=== PATIENT | female | born 1935 | race Caucasian/White ===

== ENCOUNTER 2021-12-01 18:55 | Inpatient (IN) | payer MEDICARE, OTHER ==
[~2021-12-01] VITALS: Ht 170.2 cm; Wt 70.9 kg
[2021-12-01] MEDS ORDERED: AMIODARONE HCL 150 MG in D5W 5% 100 ML IV ONE (20:00)
[2021-12-01] MEDS ORDERED: LABETALOL HCL 5 MG/ML 4ML SYRINGE IV ONE (20:00)
[2021-12-01 20:07] LABS: Basophils # (auto) 0.1 10 ^3/uL (0-0.2); Basophils % (auto) 1.2 % (0.0-2.0); Eosinophils # (auto) 0.1 10 ^3/uL (0-0.8); Eosinophils % (auto) 1.5 % (0.0-7.0); Hematocrit 36.8 % (36.0-46.0); Hemoglobin 11.8 g/dL (12.2-16.2); Lymphocytes # (auto) 1.6 10 ^3/uL (0.4-5.4); Lymphocytes % (auto) 19.6 % (10.0-50.0); Mean Corpuscular Hemoglobin 28.5 pg (28.0-32.0); Mean Corpuscular Hgb Conc. 32.1 g/dL (32.0-36.0); Mean Corpuscular Volume 88.6 fL (80.0-100.0); Monocytes # (auto) 0.5 10 ^3/uL (0-1.3); Monocytes % (auto) 5.8 % (0.0-12.0); Neutrophils % (auto) 71.9 % (37.0-80.0); Nucleated Red Blood Cells % 0.2 %; Red Blood Cells 4.15 10^6/uL (4.0-5.20); Red Cell Distribution Width 15.7 % (11.8-14.3); White Blood Cell 8.3 10^3/uL (4.4-10.8)
[2021-12-01] MEDS ORDERED: AMIODARONE 450mg/250ml AE 250 ML IV SCH (20:15)
[2021-12-01 20:22] LABS: INR 1.1 (0.9-1.15); Partial Thromboplastin Time 28.8 sec (23.6-33.0)
[2021-12-01 20:28] LABS: Albumin 3.5 g/dL (3.4-5.0); BUN/Creatinine Ratio 17.1; Calcium 9.5 mg/dL (8.5-10.1); Potassium 5.1 mmol/L (3.5-5.1)
[2021-12-01] MEDS ORDERED: CLOPIDOGREL BISULFATE 75 MG TAB PO ONE (20:30)
[2021-12-01 20:31] LABS: Bilirubin, Total 0.6 mg/dL (0.2-1.0); Total Protein 7.8 g/dL (6.4-8.2)
[2021-12-01] MEDS ORDERED: AMIODARONE HCL (50 MG/ ML) 3 ML VIAL IV ONE (20:43)
[2021-12-01 20:46] LABS: Urine Bacteria NONE SEEN /hpf (None Seen); Urine Blood Negative /uL (Negative); Urine Specific Gravity 1.006 (1.001-1.035); Urine WBC 2 /hpf (0 - 5)
[2021-12-01] MEDS ORDERED: ACETAMINOPHEN 325 MG TAB PO PRN (22:30)
[2021-12-01] MEDS ORDERED: DEXTROSE (50%) 50ML SYRG IV PRN (22:30)
[2021-12-01] MEDS ORDERED: NITROGLYCERIN 0.4 MG SL TAB SL PRN (22:30)
[2021-12-01] MEDS ORDERED: METOPROLOL TARTRATE 25 MG TAB PO ONE (22:30)
[2021-12-01] MEDS ORDERED: cloNIDine HCL 0.1 MG TAB PO PRN (22:30)
[2021-12-01] MEDS ORDERED: MORPHINE SULFATE INJECTION 2 MG/ML SYRG IV PRN (22:30)
[2021-12-01 22:55] LABS: Cholesterol 185 mg/dL (< 200)
[2021-12-01 22:57] LABS: HDL Cholesterol 50 mg/dL (40-59); LDL Cholesterol 115 mg/dL (< 100); Triglycerides 139 mg/dL (< 150)
[2021-12-02] VITALS (7 sets, daily range): BP systolic 134–169; BP diastolic 60–86
[2021-12-02] MEDS: ACCU-CHEK COMFORT CURVE STRIP VI SCH ×7 (00:17→23:49)
[2021-12-02] MEDS: ONDANSETRON HCL 4 MG/2 ML VIAL IV PRN ×2 (00:19→09:31)
[2021-12-02] MEDS ORDERED: ONDA-144 PO (01:35)
[2021-12-02] MEDS ORDERED: ATOR20TA50 PO (01:35)
[2021-12-02] MEDS ORDERED: METF-869 PO (01:35)
[2021-12-02] MEDS ORDERED: FURO1TAB33 PO (01:35)
[2021-12-02] MEDS ORDERED: QUIN20TA35 PO (01:35)
[2021-12-02] MEDS ORDERED: GUAI600T23 PO (01:35)
[2021-12-02] MEDS ORDERED: POTA10TA32 PO (01:35)
[2021-12-02] MEDS ORDERED: ASPI-543 PO (01:35)
[2021-12-02] MEDS ORDERED: METO5TAB2 PO (01:35)
[2021-12-02] MEDS ORDERED: NIFE1TAB31 PO (01:35)
[2021-12-02] MEDS: InsuLIN REG 1unit/0.01ml Soln (100units/ml) SC SCH ×8 (03:54→23:49)
[2021-12-02 06:24] LABS: Basophils # (auto) 0 10 ^3/uL (0-0.2); Basophils % (auto) 0.7 % (0.0-2.0); Eosinophils # (auto) 0.1 10 ^3/uL (0-0.8); Hematocrit 32.6 % (36.0-46.0); Hemoglobin 10.7 g/dL (12.2-16.2); Lymphocytes # (auto) 1.6 10 ^3/uL (0.4-5.4); Lymphocytes % (auto) 25.7 % (10.0-50.0); Mean Corpuscular Hemoglobin 29.1 pg (28.0-32.0); Mean Corpuscular Hgb Conc. 32.9 g/dL (32.0-36.0); Mean Corpuscular Volume 88.4 fL (80.0-100.0); Monocytes # (auto) 0.5 10 ^3/uL (0-1.3); Monocytes % (auto) 7.1 % (0.0-12.0); Neutrophils # (auto) 4.1 10 ^3/uL (1.6-8.6); Neutrophils % (auto) 64.5 % (37.0-80.0); Nucleated Red Blood Cells % 0.1 %; Red Blood Cells 3.69 10^6/uL (4.0-5.20); Red Cell Distribution Width 15.1 % (11.8-14.3); White Blood Cell 6.3 10^3/uL (4.4-10.8)
[2021-12-02 06:25] LABS: BUN/Creatinine Ratio 17.2; Calcium 8.8 mg/dL (8.5-10.1); Potassium 4.8 mmol/L (3.5-5.1)
[2021-12-02] MEDS: METOPROLOL TARTRATE 25 MG TAB PO SCH ×2 (10:18→21:35)
[2021-12-02] MEDS: ENOXAPARIN SOD 30 MG/0.3 ML SYRINGE SC SCH (10:19)
[2021-12-02] MEDS: ASPirin 81 mg TAB PO SCH (10:21)
[2021-12-02] MEDS ORDERED: LORazepam 2MG/ML-1ML VIAL IV PRN (20:45)
[2021-12-02] MEDS ORDERED: ATORVASTATIN 20 MG TAB PO SCH (22:00)
[2021-12-03] MEDS: InsuLIN REG 1unit/0.01ml Soln (100units/ml) SC SCH ×6 (03:54→20:00)
[2021-12-03] MEDS: ACCU-CHEK COMFORT CURVE STRIP VI SCH ×5 (03:54→20:16)
[2021-12-03 05:00] VITALS: BP 120/72
[2021-12-03 09:00] VITALS: BP 128/76
[2021-12-03] MEDS: ASPirin 81 mg TAB PO SCH (09:44)
[2021-12-03] MEDS: METOPROLOL TARTRATE 25 MG TAB PO SCH ×2 (09:45→22:23)
[2021-12-03] MEDS: ENOXAPARIN SOD 30 MG/0.3 ML SYRINGE SC SCH (09:46)
[2021-12-03 13:00] VITALS: BP 158/77
[2021-12-03 16:37] VITALS: BP 161/80
[2021-12-03 22:00] VITALS: BP 143/81
[2021-12-03] MEDS ORDERED: ATORVASTATIN 20 MG TAB PO SCH (22:00)
[2021-12-04] MEDS: ACCU-CHEK COMFORT CURVE STRIP VI SCH ×4 (01:00→11:45)
[2021-12-04] MEDS: InsuLIN REG 1unit/0.01ml Soln (100units/ml) SC SCH ×4 (04:00→11:45)
[2021-12-04 05:00] VITALS: BP 142/70
[2021-12-04 06:00] LABS: Basophils # (auto) 0.1 10 ^3/uL (0-0.2); Basophils % (auto) 0.8 % (0.0-2.0); Eosinophils # (auto) 0.2 10 ^3/uL (0-0.8); Hematocrit 32.4 % (36.0-46.0); Hemoglobin 10.7 g/dL (12.2-16.2); Lymphocytes # (auto) 2.1 10 ^3/uL (0.4-5.4); Lymphocytes % (auto) 33.1 % (10.0-50.0); Mean Corpuscular Hemoglobin 28.8 pg (28.0-32.0); Mean Corpuscular Hgb Conc. 32.9 g/dL (32.0-36.0); Mean Corpuscular Volume 87.5 fL (80.0-100.0); Monocytes # (auto) 0.5 10 ^3/uL (0-1.3); Monocytes % (auto) 7.4 % (0.0-12.0); Neutrophils # (auto) 3.5 10 ^3/uL (1.6-8.6); Neutrophils % (auto) 55.7 % (37.0-80.0); Nucleated Red Blood Cells % 0.1 %; Red Cell Distribution Width 15.1 % (11.8-14.3); White Blood Cell 6.2 10^3/uL (4.4-10.8)
[2021-12-04 06:15] LABS: Calcium 8.9 mg/dL (8.5-10.1); Magnesium 2.5 mg/dL (1.6-2.6); Potassium 4.8 mmol/L (3.5-5.1)
[2021-12-04 06:23] LABS: BUN/Creatinine Ratio 26.9
[2021-12-04 09:00] VITALS: BP 134/61
[2021-12-04] MEDS: ENOXAPARIN SOD 30 MG/0.3 ML SYRINGE SC SCH (09:05)
[2021-12-04] MEDS: ASPirin 81 mg TAB PO SCH (09:05)
[2021-12-04] MEDS: METOPROLOL TARTRATE 25 MG TAB PO SCH (09:18)
[2021-12-04] MEDS ORDERED: APIX5TAB PO (10:52)
[2021-12-04] MEDS ORDERED: MET25T PO (10:52)
[2021-12-04] MEDS ORDERED: ATOR20TA50 PO (10:52)
[2021-12-04] MEDS: ONDANSETRON HCL 4 MG/2 ML VIAL IV PRN (12:02)
[2021-12-04 13:00] VITALS: BP 120/53
[2021-12-04 15:16] VITALS: BP 120/53
== END 2021-12-04 17:22 | disposition hospice, home (50) | DRG 281 ==
LOC: EDBD 18:55 → ER 19:04 → TELE 22:22 → TELE-WESTW 23:31
PROVIDERS: ADMIT Nurse Practitioner; ATTEND Internal Medicine
DX: I21.4 Non-ST elevation (NSTEMI) myocardial infarction (principal); I16.1 Hypertensive emergency; I48.91 Unspecified atrial fibrillation; E11.22 Type 2 diabetes mellitus with diabetic chronic kidney disease; E66.9 Obesity, unspecified; H91.90 Unspecified hearing loss, unspecified ear; I25.10 Atherosclerotic heart disease of native coronary artery without angina pectoris; I12.9 Hypertensive chronic kidney disease with stage 1 through stage 4 chronic kidney disease, or unspecified chronic kidney disease; Z20.822 Contact with and (suspected) exposure to COVID-19; I45.10 Unspecified right bundle-branch block; N18.9 Chronic kidney disease, unspecified; Z51.5 Encounter for palliative care; Z79.82 Long term (current) use of aspirin; Z79.899 Other long term (current) drug therapy; Z68.26 Body mass index [BMI] 26.0-26.9, adult
CPT/HCPCS: 36415; 70450; 70551; 71045; 80048; 80053; 80061; 81001; 82962; 83735; 83880; 84484; 85025; 85610; 85730; 93005; 93306; 93886; 93971; 96365; 96366; 97116; 97163; 97530; 99291; G0378; J2405; J3490; J7060